=== PATIENT | female | born 1980 | race Asian ===

== ENCOUNTER 2016-04-27 21:03 | Emergency (ER) | payer OTHER ==
[2016-04-27 21:17] VITALS: BP 122/68; PULSE 80; TEMP 97.6; BMI 28.1
--- NOTE | 2016-04-27 21:37 | PDOC ---
History of Present Illness - General History Source: Patient <[email or web address] - Last Filed: 04/28/16 00:11> - General History Source: Patient Exam Limitations: No Limitations - History of Present Illness Initial Comments: 04/27/16 21:37 The patient is a 35 year old female ( ), with a significant past medical history of a small rectovaginal fistula, who presents to the emergency department complaining of vaginal bleeding that began prior to presentation this evening. The patient reports she has used 1 pad since the bleeding began. However, she states the pad is currently soaked. The patient denies any associated abdominal pain, nausea, vomiting, diarrhea, or constipation. The patient denies any heavy lifting. The patient reports she saw her MEAT AND SEAFOOD MANAGER, who suggested the patient is approximately 8.5 weeks . The patient denies any fever, chills, cough, dizziness, or headache. The patient denies any dysuria, hematuria, frequency, or urgency. Allergies: None reported. Past Surgical History: None reported. Social History: Non-smoker. Denies alcohol or drug use. <Jo Chairez - Last Filed: 04/28/16 02:12> - General Chief Complaint: Vaginal Bleeding Stated Complaint: 8 WEEK PREG, VAG. BLEEDING Time Seen by Provider: 04/27/16 21:20 Past History - Past Medical History Asthma: No Cancer: No Cardiac Disorders: No Diabetes: No HTN: No Seizures: No Thyroid Disease: No - Psycho/Social/Smoking Cessation Hx Suicidal Ideation: No Smoking History: Never smoked Have you smoked in the past 12 months: No Number of Cigarettes Smoked Daily: 0 Information on smoking cessation initiated: No Hx Alcohol Use: No Drug/Substance Use Hx: No Hx Substance Use Treatment: No <Jerry Mercado - Last Filed: 04/28/16 00:11> <Jo Chairez - Last Filed: 04/28/16 02:12> - Past Medical History Allergies/Adverse Reactions: Allergies Allergy/AdvReac Type Severity Reaction Status Date / Time No Known Drug Allergies Allergy Verified 04/27/16 21:14 Home Medications: Ambulatory Orders Vitamins (Sjr) - 1 tab PO DAILY #0 tablet 10/16/13 Review of Systems - Review of Systems Able to Perform ROS?: Yes Comments:: 04/27/16 21:37 CONSTITUTIONAL: Absent: fever, no chills, no fatigue EYES: Absent: visual changes ENT: Absent: ear pain, no sore throat CARDIOVASCULAR: Absent: chest pain, no palpitations RESPIRATORY: Absent: cough, no SOB GI: Absent: abdominal pain, no nausea, no vomiting, no constipation, no diarrhea GENITOURINARY: Present: +vaginal bleeding Absent: dysuria, no frequency, no hematuria MUSKULOSKELETAL: Absent: back pain, no arthralgia, no myalgia SKIN: Absent: rash NEURO: Absent: headache <Jo Chairez - Last Filed: 04/28/16 02:12> *Physical Exam - Vital Signs Last Vital Signs Temp Pulse Resp BP Pulse Ox 97.6 F 80 14 122/68 99 04/27/16 21:14 04/27/16 21:14 04/27/16 21:14 04/27/16 21:14 04/27/16 21:14 <Jerry Mercado - Last Filed: 04/28/16 00:11> - Vital Signs Last Vital Signs Temp Pulse Resp BP Pulse Ox 97.6 F 80 14 122/68 99 04/27/16 21:14 04/27/16 21:14 04/27/16 21:14 04/27/16 21:14 04/27/16 21:14 - Physical Exam Comments: 04/27/16 21:38 GENERAL: Well-appearing, well-nourished. No apparent distress. HEENT: Normocephalic, atraumatic. PERRL, EOM intact. CARDIOVASCULAR: Normal S1, S2. Regular rate and rhythm. PULMONARY: Clear to auscultation bilaterally. ABDOMINAL: Soft. Non-tender. Non-distended. No rebound or guarding. No organomegaly. Normoactive bowel sounds. PELVIC: Will defer to pelvic US EXTREMITIES: Normal ROM in all four extremities. No gross deformities. SKIN: Warm, dry. No rash NEUROLOGICAL: No focal neurological deficits. <Jo Chairez - Last Filed: 04/28/16 02:12> ED Treatment Course - LABORATORY CBC & Chemistry Diagram: 04/27/16 21:50 04/27/16 21:50 <Jerry Mercado - Last Filed: 04/28/16 00:11> - LABORATORY CBC & Chemistry Diagram: 04/27/16 21:50 04/27/16 21:50 - RADIOLOGY Radiograph Interpretation: 04/28/16 02:11 EXAM: Pelvic US INTERPRETED: Dr. Curran REVIEWED BY: Dr. Mercado IMPRESSION: Single intrauterine gestational sac seen in the lower uterine segment. Rule out pending . Estimated sonographic gestational age is 5 weeks 6 days. Low heart rate of 100 bpm that may be due to pole size. Note is made of a small subchorionic hemorrhage. Clinical correlation as well as serial quantitative serum beta hCG and close follow-up ultrasound is recommended. <Jo Chairez - Last Filed: 04/28/16 02:12> Medical Decision Making - Medical Decision Making 04/28/16 00:12 Dr. Mercado: The scribe's documentation has been prepared under my direction and personally reviewed by me in its entirery. I confirm that the note above accurately reflects all work, treatment, procedures, and medical decision making performed by me. US showed IUP with FHT of 100, approx 5 weeks 6 days. IUP appears to be in low segment. Pt advised to follow up with her improvement auditor. <Jerry Mercado - Last Filed: 04/28/16 00:11> *DC/Admit/Observation/Transfer - Discharge Dispostion Admit: No <Jerry Mercado - Last Filed: 04/28/16 00:11> - Attestations Scribe Attestion: 04/27/16 21:38 Documentation prepared by Jo Chairez, acting as medical office asst for Jerry Mercado DO. <Jo Chairez - Last Filed: 04/28/16 02:12> Diagnosis at time of Disposition: pregnacy , Threatened - Discharge Dispostion Disposition: HOME Condition at time of disposition: Stable - Referrals Referrals: Brown Whitlock MD [Staff Physician] - - Patient Instructions Printed Discharge Instructions: DI for Threatened
[2016-04-27 22:21] LABS: BASOPHIL 0.2 % (0-2.0); EOSINOPHIL 0.6 % (0-4.5); MCH 28.6 pg (25.7-33.7); MCHC 33.7 g/dl (32.0-36.0); MEAN PLT VOLUME 7.7 fl (7.5-11.1); NEUTROPHILS 69.8 % (42.8-82.8); PLATELET COUNT 307 K/MM3 (134-434); RDW 13.1 % (11.6-15.6); WHITE BLOOD COUNT 9.8 K/mm3 (4.0-10.0)
[2016-04-27 22:24] LABS: INR 1.05 (0.82-1.09); PROTHROMBIN TIME (PATIENT) 11.6 SEC (9.98-11.88)
[2016-04-27 22:42] LABS: ALBUMIN 3.8 g/dl (3.4-5.0); ALK PHOS 68 U/L (45-117); ANION GAP 13 (8-16); BILIRUBIN,TOTAL 0.2 mg/dL (0.2-1.0); CALCIUM 8.9 mg/dL (8.5-10.1); CO2 25 mmol/L (21-32); CREATININE 0.7 mg/dL (0.55-1.02); GLUCOSE,RANDOM 131 mg/dL (74-106); MAGNESIUM 1.8 mg/dL (1.8-2.4); SGOT/AST 14 U/L (15-37); SGPT/ALT 21 U/L (12-78); TOT PROT 7.1 g/dl (6.4-8.2)
== END 2016-04-28 00:19 | disposition home or self-care (01) ==
LOC: JER 21:03
DX: O20.0 Threatened abortion (principal); Z3A.01 Less than 8 weeks gestation of pregnancy
CPT/HCPCS: 36415; 76817-TC; 80053; 83735; 84702; 85025; 85610; 86850; 86900; 86901; 99281-25

== ENCOUNTER 2017-05-11 08:20 | Inpatient (IN) | payer OTHER ==
[2017-05-11] MEDS ORDERED: DEXTROSE 5%-LACTATED RINGERS 1,000 ML IV SCH ×2 (09:00→10:30)
[2017-05-11 10:02] VITALS: BMI 32.5
[2017-05-11 10:06] LABS: BASO % 0.1 % (0-2.0); EOS % 0.1 % (0-4.5); HEMATOCRIT 40.3 % (32.4-45.2); HEMOGLOBIN 13.6 GM/dL (10.7-15.3); LYMPH % 18.2 % (8-40); MCHC 33.6 g/dl (32.0-36.0); MEAN CELL VOLUME 86.2 fl (80-96); MONO % 4.4 % (3.8-10.2); NEUT % 77.2 % (42.8-82.8); PLATELET COUNT 220 K/MM3 (134-434); RBC 4.67 M/mm3 (3.60-5.2); RDW 14.2 % (11.6-15.6); WHITE BLOOD COUNT 9.2 K/mm3 (4.0-10.0)
[2017-05-11 10:13] LABS: INR 0.98 (0.82-1.09); PROTHROMBIN TIME (PATIENT) 11.1 SEC (9.98-11.88)
[2017-05-11 10:15] LABS: ACTIVATED PTT 27.3 SECONDS (26.9-34.4)
[2017-05-11 10:19] LABS: ANION GAP 11 (8-16); BLOOD UREA NITROGEN 10 mg/dL (7-18); CALCIUM 8.2 mg/dL (8.5-10.1); CHLORIDE 107 mmol/L (98-107); CO2 21 mmol/L (21-32); CREATININE 0.5 mg/dL (0.55-1.02); GLUCOSE,RANDOM 128 mg/dL (74-106); POTASSIUM 3.8 mmol/L (3.5-5.1); SODIUM 139 mmol/L (136-145)
[2017-05-11] MEDS ORDERED: TUBERCULIN PPD 5 TU/0.1ML SYRINGE (IN PATIENT USE ONLY) ID ONE (10:30)
[2017-05-11] MEDS ORDERED: OXYTOCIN 20 UNITS in 0.9% NS 20 UNIT/1,000 ML INFUS.BAG IV ONE ×2 (11:59→14:30)
[2017-05-11] MEDS ORDERED: BUTORPHANOL TARTRATE 1 MG/ML VIAL ONE ×2 (12:49)
[2017-05-11] MEDS ORDERED: METHYLERGONOVINE MALEATE 0.2 MG/1 ML AMP IM PRN (14:18)
[2017-05-11] MEDS ORDERED: BENZOCAINE 20% 57 GM BOTTLE TP PRN (14:18)
[2017-05-11] MEDS ORDERED: WITCH HAZEL 50% (TUCKS) 40 PAD/JAR PAD TP PRN (14:18)
[2017-05-11] MEDS ORDERED: BENZOCAINE 28 GM HEMORRHOIDAL OINTMENT TP PRN (14:18)
[2017-05-11] MEDS ORDERED: BISACODYL 10 MG SUPP.RECT RC PRN (14:18)
[2017-05-11] MEDS ORDERED: OXYTOCIN 20 UNITS in 0.9% NS 20 UNIT/1,000 ML INFUS.BAG IV SCH (14:30)
[2017-05-11] MEDS ORDERED: BUTORPHANOL TARTRATE 1 MG/ML VIAL IVPUSH ONE (14:30)
--- NOTE | 2017-05-11 17:29 | HP ---
Past Medical History - Admission Chief Complaint: Labor pain History of Present Illness: 36 yo @ 39 weeks gestation, admitted in active labor. Upon admission she was 4cm dilated. History Source: Patient Limitations to Obtaining History: No Limitations - Past Medical History ...: 4 ...Para: 2 ...Term: 2 ...: 0 ...Spon : 1 ...Induced : 0 ...Multiple Gestation: 0 ...LMP: 08/06/16 ... Weeks Gestation by Dates: 39.5 ...EDC by Dates: 05/13/17 ...EDC by Sono: 05/13/17 - Past Surgical History Past Surgical History: Yes: None Hx Myomectomy: No Hx Transabdominal Cerclage: No - Smoking History Smoking history: Never smoked Have you smoked in the past 12 months: No Aproximately how many cigarettes per day: 0 - Alcohol/Substance Use Hx Alcohol Use: No History of Substance Use: reports: None - Social History Usual Living Arrangement: Yes: With Spouse History of Recent Travel: No Home Medications - Allergies Allergies/Adverse Reactions: Allergies Allergy/AdvReac Type Severity Reaction Status Date / Time No Known Drug Allergies Allergy Verified 05/11/17 08:59 - Home Medications Home Medications: Ambulatory Orders Vitamins (Sjr) - 1 tab PO DAILY #0 tablet 10/16/13 Family Disease History - Family Disease History Family History: Unremarkable Review of Systems - Review of Systems Constitutional: reports: No Symptoms Eyes: reports: No Symptoms HENT: reports: No Symptoms Neck: reports: No Symptoms Cardiovascular: reports: No Symptoms Respiratory: reports: No Symptoms Gastrointestinal: reports: No Symptoms Genitourinary: reports: Pain Breasts: reports: No Symptoms Reported Musculoskeletal: reports: No Symptoms Integumentary: reports: No Symptoms Neurological: reports: No Symptoms Endocrine: reports: No Symptoms Hematology/Lymphatic: reports: No Symptoms Psychiatric: reports: No Symptoms Pain Intensity: 8 Physical Exam - Maternity Vital Signs: Vital Signs Temperature 98.1 F 05/11/17 14:57 Pulse Rate 72 05/11/17 14:57 Respiratory Rate 18 05/11/17 14:57 Blood Pressure 121/77 05/11/17 13:45 O2 Sat by Pulse Oximetry (%) 99 05/11/17 14:36 Constitutional: Yes: Well Nourished Eyes: Yes: Conjunctiva Clear HENT: Yes: Atraumatic Neck: Yes: Supple Cardiovascular: Yes: Regular Rate and Rhythm Lungs: Clear to auscultation - Abdominal Exam/OB Number of Fetuses: Single Presentation: Vertex Intensity: Mod/Strong - Vaginal Exam/OB Vaginal Bleediing: No Dilatation (cm): 4 Amniotic Membrane Status: Intact Station: -2 - Physical Exam ...Motor Strength: WNL Psychiatric: Yes: Alert, Oriented - Labs Lab Results: CBC, BMP 05/11/17 09:30 05/11/17 09:30 Problem List - Problems (1) Pain during labor Code(s): O99.89 - OTH DISEASES AND CONDITIONS COMPL PREG/CHLDBRTH; R52 - PAIN, UNSPECIFIED (2) Status post vaginal delivery Code(s): PIS8430 - Assessment/Plan IUP @ 39 weeks Active labor Anticipated
--- NOTE | 2017-05-11 17:33 | PN ---
Delivery - Delivery Type of Anesthesia: Local Episiotomy/Laceration: Midline EBL (cc): 350 Delivery, Single - Stages of Labor Date 1st Stage Initiatied: 05/11/17 Time 1st Stage Initiated: 03:00 Date 2nd Stage Initiated: 05/11/17 Time 2nd Stage Initiated: 12:32 Date of Delivery: 05/11/17 Time of Delivery: 12:38 Time Placenta Delivered: 12:41 - Condition of Infant Hiv Counselor/Mussel Farmer Present: Yes Name: Constance Whitehead Infant Gender: Female Weight: 8 lb 6 oz Position: Right, OA Total Hours ROM (Hrs/Mins): 13mins - 1 Minute Total Score: 9 5 Minutes Total Score: 9 - Ash Feeding Plan Initial Plan: Elected not to breastfeed exclusively throughout hospitalization Remarks - Remarks Remarks: Normal spontaneous vaginal delivery of a live infant over midline episiotomy. Nose / Oropharyx suction @ perineum. Cord clamped and cut. Placenta expelled spontaneously intact. Episiotomy repaired with 2.0 Chromic
[2017-05-12] MEDS: IBUPROFEN 600 MG TABLET (FP) PO PRN ×3 (06:19→20:38)
[2017-05-12] MEDS: ACETAMINOPHEN 325 MG TABLET (FP) PO PRN ×3 (06:20→20:38)
[2017-05-12] MEDS ORDERED: SENNOSIDES/DOCUSATE COMBO (SENNA PLUS) TABLET (UD) PO PRN (14:18)
[2017-05-13] MEDS: ACETAMINOPHEN 325 MG TABLET (FP) PO PRN (10:10)
[2017-05-13] MEDS: IBUPROFEN 600 MG TABLET (FP) PO PRN (10:11)
[2017-05-13 10:49] VITALS: BP 127/92; PULSE 72; TEMP 98.4
--- NOTE | 2017-05-13 13:14 | DS ---
Physical Exam-LAUNDRY WASHER Vital Signs: Vital Signs Temperature 98.4 F 05/13/17 07:45 Pulse Rate 72 05/13/17 07:45 Respiratory Rate 18 05/13/17 07:45 Blood Pressure 127/92 05/13/17 07:45 O2 Sat by Pulse Oximetry (%) 99 05/11/17 14:36 Constitutional: Yes: Well Nourished Eyes: Yes: Conjunctiva Clear HENT: Yes: Atraumatic Neck: Yes: Supple, Trachea Midline Cardiovascular: Yes: Regular Rate and Rhythm Respiratory: Yes: Regular, CTA Bilaterally Gastrointestinal: Yes: Normal Bowel Sounds Pelvis: Yes: WNL External Genitalia: Yes: Normal Vaginal Exam: Yes: Normal Cervix: Yes: Normal Uterus: Yes: Firm ....Post : Yes: Uterus firm, Moderate lochia serosa Breast(s): Yes: WNL Musculoskeletal: Yes: WNL Extremities: Yes: WNL Neurological: Yes: Alert, Oriented ...Motor Strength: WNL Psychiatric: Yes: Alert, Oriented Labs: CBC, BMP 05/11/17 09:30 05/11/17 09:30 Delivery - Delivery Type of Anesthesia: Local Episiotomy/Laceration: Midline EBL (cc): 350 Delivery, Single - Stages of Labor Date 1st Stage Initiatied: 05/11/17 Time 1st Stage Initiated: 03:00 Date 2nd Stage Initiated: 05/11/17 Time 2nd Stage Initiated: 12:32 Date of Delivery: 05/11/17 Time of Delivery: 12:38 Time Placenta Delivered: 12:41 - Condition of Infant Medicine Tech/Insurance Compliance Analyst Present: Yes Name: Constance Whitehead Gender: Female Weight: 8 lb 6 oz Position: Right, OA Total Hours ROM (Hrs/Mins): 13mins - 1 Minute Total Score: 9 5 Minutes Total Score: 9 - Feeding Plan Initial Plan: Elected not to breastfeed exclusively throughout hospitalization Discharge Summary Reason For Visit: LABOR ADMISSION Current Active Problems Pain during labor (Acute) Status post vaginal delivery (Acute) Procedures: Principal: Normal spontaneous vaginal delivery Hospital Course: Routine care Condition: Good - Instructions Diet, Activity, Other Instructions: Regular diet No douching, no sexual intercourse x 6 weeks F/U with MD in 6 weeks Disposition: HOME - Home Medications Comprehensive Discharge Medication List: Ambulatory Orders Vitamins (Sjr) - 1 tab PO DAILY #0 tablet 10/16/13
== END 2017-05-13 14:00 | disposition home or self-care (01) | DRG 560 ==
LOC: JDEL 08:20 → JLDR 08:55 → J3W 14:29
PROVIDERS: ADMIT Obstetrics & Gynecology; ATTEND Obstetrics & Gynecology
PROC: 10E0XZZ Delivery of Products of Conception, External Approach (ICD-10-PCS; principal; 2017-05-11)
PROC: 0W8NXZZ Division of Female Perineum, External Approach (ICD-10-PCS; 2017-05-11)
DX: O80 Encounter for full-term uncomplicated delivery (principal); Z3A.39 39 weeks gestation of pregnancy; Z37.0 Single live birth
CPT/HCPCS: 36415; 59409; 71046-TC-FY; 80048; 85025; 85610; 85730; 86593; 86850; 86900; 86901